=== PATIENT | male | born 1940 | race Caucasian/White ===

== ENCOUNTER 2021-10-11 21:24 | Inpatient (IN) | payer MEDICARE, BC ==
[~2021-10-11] VITALS: Ht 175.3 cm; Wt 65.3 kg
[2021-10-11 21:44] LABS: HEMOGLOBIN 10.9 gm/dl (14.0-17.5); RED BLOOD COUNT 3.97 M/UL (4.20-5.50); WHITE BLOOD COUNT 10.2 K/UL (4.5-11.0)
[2021-10-12] MEDS ORDERED: MACROBID 100 M100 MG PO (02:02)
[2021-10-12] MEDS ORDERED: HYDROCODON-ACE1 EAC6 PO (02:05)
[2021-10-12] MEDS ORDERED: ADULT LOW DOSE81 MG PO (02:06)
[2021-10-12] MEDS ORDERED: DONEPEZIL HCL10 MG PO (02:07)
[2021-10-12] MEDS ORDERED: COREG3.125 MG PO (02:08)
[2021-10-12] MEDS ORDERED: FUROSEMIDE20 MG PO (02:08)
[2021-10-12] MEDS ORDERED: ENTRESTO 24 MG1 EACH PO (02:09)
[2021-10-12] MEDS ORDERED: WARFARIN SODIU2.5 MG PO (02:14)
[2021-10-12 06:13] LABS: HEMOGLOBIN 10.5 gm/dl (14.0-17.5); RED BLOOD COUNT 3.86 M/UL (4.20-5.50); WHITE BLOOD COUNT 11.4 K/UL (4.5-11.0)
[2021-10-12] MEDS ORDERED: ATORVASTATIN CA20 MG PO (12:47)
[2021-10-12] MEDS ORDERED: ATORVASTATIN CA40 MG PO (12:48)
== END 2021-10-12 15:20 | disposition home or self-care (01) | DRG 871 ==
LOC: ER1 21:24 → PROG CARE 22:57 → CDU 22:57 → PROG CARE 10-12 02:18
PROVIDERS: Family Medicine; ADMIT Internal Medicine
DX: A41.9 Sepsis, unspecified organism (principal); Z20.822 Contact with and (suspected) exposure to COVID-19; G93.41 Metabolic encephalopathy; I21.4 Non-ST elevation (NSTEMI) myocardial infarction; I50.23 Acute on chronic systolic (congestive) heart failure; J96.21 Acute and chronic respiratory failure with hypoxia; E87.2 Acidosis; N30.00 Acute cystitis without hematuria; N17.9 Acute kidney failure, unspecified; I48.20 Chronic atrial fibrillation, unspecified; R65.20 Severe sepsis without septic shock; I27.20 Pulmonary hypertension, unspecified; I08.1 Rheumatic disorders of both mitral and tricuspid valves; I11.0 Hypertensive heart disease with heart failure; M19.90 Unspecified osteoarthritis, unspecified site; I95.9 Hypotension, unspecified; E83.42 Hypomagnesemia; I44.7 Left bundle-branch block, unspecified; D64.9 Anemia, unspecified; I71.4 Abdominal aortic aneurysm, without rupture; I25.10 Atherosclerotic heart disease of native coronary artery without angina pectoris; E86.0 Dehydration; F03.90 Unspecified dementia, unspecified severity, without behavioral disturbance, psychotic disturbance, mood disturbance, and anxiety; Z79.01 Long term (current) use of anticoagulants; Z79.82 Long term (current) use of aspirin; Z95.810 Presence of automatic (implantable) cardiac defibrillator; Z95.1 Presence of aortocoronary bypass graft; Z85.038 Personal history of other malignant neoplasm of large intestine; Z85.46 Personal history of malignant neoplasm of prostate; Z98.890 Other specified postprocedural states; Z82.3 Family history of stroke; Z87.891 Personal history of nicotine dependence; Z86.73 Personal history of transient ischemic attack (TIA), and cerebral infarction without residual deficits
CPT/HCPCS: ECHO; 36415; 70450; 71045; 80048; 80053; 81001; 82550; 82553; 83605; 83690; 83735; 83880; 84439; 84443; 84484; 85025; 85610; 87086; 93005; 93306; 96374; 99285; J0696; U0002